=== PATIENT | female | born 1955 | race Caucasian/White ===

== ENCOUNTER 2020-03-17 16:36 | Emergency (ER) | payer OTHER, SELFPAY ==
--- NOTE | ~2020-03-17 | XR_ITS ---
EXAMINATION: XR lumbar spine 2-3V EXAM DATE: 03/17/2020 17:15 INDICATION: Back pain, after lifting table. Pain in both sides and hips. TECHNIQUE: Lumber spine frontal, lateral, lateral L5-S1 projections for interpretation. There is no prior study for comparison. 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 There is mild lumbar facet arthropathy. There is mild compression fracture of the L1 vertebral bod y, mild anterior wedging, potentially could be an acute finding. The vertebral body and disc heights are otherwise well maintained. The vertebral bodies are aligned in the AP dimension. Paraspinal soft tissue is unremarkable. Sacrum, sacroiliac joints, sacral arcuate lines are intact. IMPRESSION: Mild L1 compression fracture, could be acute. Reviewed, dictated and finalized at location A.
[2020-03-17 16:52] VITALS: BP 136/59; PULSE 128; RESP 20; O2SAT 92
--- NOTE | 2020-03-17 17:04 | PC.NURSE ---
Patient to x-ray.
--- NOTE | 2020-03-17 17:08 | ED.BACK ---
HPI - Back Pain/Injury General Chief Complaint: Back Pain/Injury <Rosa Lipscomb PA-C - Last Filed: 03/17/20 17:48> Stated Complaint: Back Pain <MARY Schwartz Last Filed: 03/17/20 17:48> Time Seen by Provider: 03/17/20 16:43 <MARY Schwartz Last Filed: 03/17/20 17:48> Source: patient <MARY Schwartz Last Filed: 03/17/20 17:48> Mode of arrival: ambulatory <MARY Schwartz Last Filed: 03/17/20 17:48> Limitations: no limitations <MARY Schwartz Last Filed: 03/17/20 17:48> History of Present Illness HPI Narrative: Patient with history of anxiety and some form of leukemia presents with chief complaint of low back pain that began last night at approximately 9 PM after lifting and moving a marble table by herself. Patient states that she does not have a history of low back pain and this is isolated event. Patient denies radiculopathy to her lower extremities, tingling or numbness. Patient denies saddle paresthesia or loss of bowel or bladder function. She reports pain has worsened since sleeping last night and worsens with range of motion such as twisting or flexing. <Rosa Lipscomb PA-C - Last Filed: 03/17/20 17:48> Related Data Home Medications: Home Medications Medication Instructions Recorded Confirmed allopurinol 1 PO DAILY 03/17/20 allopurinol 100 mg PO DAILY 03/17/20 03/17/20 alprazolam PRN PRN 03/17/20 <Rosa Lipscomb PA-C - Last Filed: 03/17/20 17:48> Allergies/Adverse Reactions: Allergies Allergy/AdvReac Type Severity Reaction Status Date / Time No Known Allergies Allergy Verified 03/17/20 17:03 <MARY Schwartz Last Filed: 03/17/20 17:48> Review of Systems Review of Systems: Narrative: CONSTITUTIONAL: Denies fever, chills, or sweats. EYES: Denies visual changes, redness, or discharge. ENT: Denies rhinorrhea, congestion, sore throat, or otalgia. CARDIOVASCULAR: Denies chest pain, palpitations, or edema. RESPIRATORY: Denies cough or dyspnea. GASTROINTESTINAL: Denies abdominal pain, nausea, vomiting, or diarrhea. GENITOURINARY: Denies dysuria or hematuria. SKIN: Denies rash or itching. MUSCULOSKELETAL:. Reports back pain, Denies joint pain, or myalgia. NEUROLOGIC: Denies headache, numbness, dizziness, or weakness. PSYCHIATRIC: Denies anxiety or depression. <Rosa Lipscomb PA-C - Last Filed: 03/17/20 17:48> Exam Narrative: Exam Narrative: GENERAL: Well-appearing, well-nourished, anxious. HEAD: Normocephalic, atraumatic. EYES: PERRLA and EOMI. ENT: Nares clear, no rhinorrhea or epistaxis. Mucous membranes moist. Oropharynx without tonsillar hypertrophy exudate or other lesions. Bilateral TMs pearly kaufman nonbulging CHEST: Clear to auscultation. No respiratory distress. No wheezes rales or rhonchi HEART: Regular rate and rhythm. BACK: No vertebral point tenderness. Pain to lumbar paraspinal muscles B/L Pain elicited with lumbar rotation and flexion. healed scar to lower right back. Gross sensation intact to lower extremities. EXTREMITIES: Normal range of motion. No edema. SKIN: Warm, dry, no rash. NEURO: No focal deficits. Alert and oriented x3. Gait is steady PSYCH: Anxious. <MARY Schwartz Last Filed: 03/17/20 17:48> Course Vital Signs Vital signs: Vital Signs Pulse Rate 128 H 03/17/20 16:52 Respiratory Rate 03/17/20 16:52 Blood Pressure 136/59 L 03/17/20 16:52 Pulse Oximetry 92 03/17/20 16:52 Temperature 36.9 C 03/17/20 17:16 Pulse Rate 128 H 03/17/20 16:52 Respiratory Rate 03/17/20 16:52 Blood Pressure 136/59 L 03/17/20 16:52 Pulse Oximetry 92 03/17/20 16:52 <MARY Schwartz Last Filed: 09/10/20 17:48> Vital Signs Pulse Rate 128 H 03/17/20 16:52 Respiratory Rate 20 03/17/20 16:52 Blood Pressure 136/59 L 03/17/20 16:52 Pulse Oximetry 92 03/17/20 16:52 Temperature 36.9 C 03/17/20 17:16 Pulse Rate
[2020-03-17 17:16] VITALS: TEMP 36.9
[2020-03-17 18:05] VITALS: BP 127/59; PULSE 110; RESP 16; O2SAT 100
== END 2020-03-17 18:05 | disposition home or self-care (01) ==
PROVIDERS: Emergency Provider Emergency Medicine
DX: S39.012A Strain of muscle, fascia and tendon of lower back, initial encounter (principal); F41.9 Anxiety disorder, unspecified; Z85.6 Personal history of leukemia; R93.7 Abnormal findings on diagnostic imaging of other parts of musculoskeletal system; X50.0XXA Overexertion from strenuous movement or load, initial encounter
CPT/HCPCS: 72100; 99283; A9270

== ENCOUNTER 2021-04-25 07:49 | Outpatient (CLI) | payer OTHER, SELFPAY ==
--- NOTE | ~2021-04-25 | MM_ITS ---
EXAMINATION: MM screening sayda BI w samantha HISTORY: Screening mammogram TECHNIQUE: Craniocaudal and mediolateral oblique 3-D tomosynthesis images were obtained and synthetic 2-D images were generated. CAD analysis was submitted and interpreted. COMPARISON: No prior mammogram is available for comparison at this institution. BREAST PARENCHYMAL COMPOSITION: The breasts are heterogeneously dense, which may obscure small masses . FINDINGS: There is no evidence of suspicious mass, calcification, or architectural distortion to sugg est malignancy in either breast. There has been no suspicious interval change. IMPRESSION: 1. No mammographic evidence of malignancy. 2. Recommend routine screening mammography in one year. BI-RADS Category 1: Negative Reviewed, dictated and finalized at location A.
--- NOTE | ~2021-04-25 | DEXA_ITS ---
Bone Density Report Name: Ashley Boudreaux Age: 65 Sex: Female Ethnicity: White Date of : 1955 Indication: postmenopausal; height loss; prior fracture; Referring Provider: BROWN MOSLEY Study: Bone densitometry was performed. Exam Date: April 25, 2021 Accession number: [id number] Bone Density: Region BMD T-score Z-score Classification AP Spine (L1-L4) 0.691 -3.2 -1.4 Osteoporosis Femoral Neck (Left) 0.540 -2.8 -1.2 Osteoporosis Total Hip (Left) 0.550 -3.2 -2.0 Osteoporosis Total Hip Bilateral Avg 0.536 -3.4 -2.1 Osteoporosis Femoral Neck (Right) 0.501 -3.1 -1.6 Osteoporosis Total Hip (Right) 0.521 -3.5 -2.2 Osteoporosis World Health Organization criteria for BMD impression classify patients as: Normal (T-score at or above -1.0), Osteopenia (T-score between -1.0 and -2.5), or Osteoporosis (T-score at or below -2.5). 10-year Fracture Risk: FRAX not reported because: Some T-score for Spine Total or Hip Total or Femoral Neck at or below -2.5 Clinical Information Provided by Patient: Has had a low trauma fracture Smokes Has used the following medications: Vitamin D, Calcium Patient maximum height was 68 Menopause Age: 45 No regular weight bearing exercise Onset of menses at age 13 Number of children 4 Impression: The patient has established osteoporosis, based on the Right Total Hip T-score and the existence of a prior fracture. The patient has risk factors, including: smoking, previous fracture. Discussion: HIGH RISK OF FRACTURE. BONE DENSITY IS UNDESIRABLY LOW AT ONE OR MORE SKELETAL SITES, CONSISTENT WITH POSTMENOPAUSAL OSTEOPOROSIS. This patient's lowest T-score, in a patient who has previously fractured, meets the World Health Organization's (WHO) criteria for severe osteoporosis. In untreated patients, the risk of osteoporotic fracture increases approximately two-fold for each 1.0 SD decrease in T-score. Low bone density is not the only risk factor for fracture; also consider factors such as patient's age, frailty or poor health, risk of falling, risk of injury, previous osteoporotic fracture, family history of osteoporosis, cigarette smoking, low body weight, etc. Not everyone with low bone mineral density has osteoporosis; osteomalacia and other metabolic bone disorders should also be considered. Patients who have osteoporosis should be evaluated for specific diseases and conditions (secondary causes) that may cause or contribute to bone loss. The [employer] Association of Clinical Endocrinologists (AACE) and National Osteoporosis Foundation (NOF) recommend pharmacologic intervention for all postmenopausal women whose T-score is in this range. The patient should follow a healthful lifestyle (good nutrition with adequate calcium and vitamin D, and appropriate weight-bearing exercise). Follow-Up: Consider a repe
== END 2021-04-25 07:50 | disposition home or self-care (01) ==
LOC: ANHIMG 07:58
DX: Z12.31 Encounter for screening mammogram for malignant neoplasm of breast (principal); Z78.0 Asymptomatic menopausal state; M81.0 Age-related osteoporosis without current pathological fracture
CPT/HCPCS: 77063; 77067; 77080

== ENCOUNTER 2022-07-10 06:53 | Outpatient (CLI) | payer MEDICARE, SELFPAY ==
[2022-07-10 08:09] LABS: LDL Cholesterol Direct 103 mg/dL
[2022-07-10 08:46] LABS: Alanine Aminotransferase 35 U/L (6-35); Albumin Level 4.1 g/dL (3.5-5.1); Alkaline Phosphatase 71 U/L (38-126); Anion Gap 7 mmol/L (8-16); Aspartate Amino Transferase 43 U/L (14-36); Bilirubin,Total 0.6 mg/dL (0.2-1.3); Blood Urea Nitrogen 11 mg/dL (7-17); Calcium 8.7 mg/dL (8.4-10.2); Carbon Dioxide 29 mmol/L (22-30); Chloride 102 mmol/L (98-107); Cholesterol 231 mg/dL (0-200); Estimated Glomerular Filt Rate > 60; Glucose 100 mg/dL (65-110); HDL Direct 85 mg/dL; Potassium 4.4 mmol/L (3.4-5.0); Sodium 138 mmol/L (137-145); Triglycerides 86 mg/dL (<150)
== END 2022-07-10 06:54 | disposition home or self-care (01) ==
DX: E78.5 Hyperlipidemia, unspecified (principal); R74.01 Elevation of levels of liver transaminase levels; R53.83 Other fatigue; E55.9 Vitamin D deficiency, unspecified; Z87.39 Personal history of other diseases of the musculoskeletal system and connective tissue
CPT/HCPCS: 36415; 80053; 80061; 82306; 84550

== ENCOUNTER 2022-12-29 08:10 | Outpatient (CLI) | payer MEDICARE, SELFPAY ==
--- NOTE | ~2022-12-29 | MM_ITS ---
EXAMINATION: MM screening sayda BI w samantha HISTORY: Screening mammogram TECHNIQUE: Craniocaudal and mediolateral oblique 3-D tomosynthesis images were obtained and synthetic 2-D images were generated. Bilateral rotated lateral CC views. CAD analysis was submitted and interp reted. COMPARISON: No prior mammogram is available for comparison at this institution. BREAST PARENCHYMAL COMPOSITION: The breasts are heterogeneously dense, which may obscure small masses . FINDINGS: There is no evidence of suspicious mass, calcification, or architectural distortion to sugg est malignancy in either breast. There has been no suspicious interval change. IMPRESSION: 1. No mammographic evidence of malignancy. 2. Recommend routine screening mammography in one year. BI-RADS Category 1: Negative Reviewed, dictated and finalized at location A.
== END 2022-12-29 08:11 | disposition home or self-care (01) ==
LOC: ANHIMG 08:14
DX: Z12.31 Encounter for screening mammogram for malignant neoplasm of breast (principal)
CPT/HCPCS: 77063; 77067

== ENCOUNTER 2024-01-03 07:45 | Outpatient (CLI) | payer MEDICARE, SELFPAY ==
--- NOTE | ~2024-01-03 | MM_ITS ---
EXAMINATION: MM screening sayda BI w samantha HISTORY: Screening mammogram TECHNIQUE: Craniocaudal and mediolateral oblique 3-D tomosynthesis images were obtained and synthetic 2-D images were generated. CAD analysis was submitted and interpreted. COMPARISON: 12/29/2022, 04/25/2021 BREAST PARENCHYMAL COMPOSITION:Dense: The breasts are extremely dense, which lowers the sensitivity o f mammography. FINDINGS: No suspicious mass, calcification, or architectural distortion are identified in either abiodun ast to suggest malignancy. There has been no suspicious interval change. IMPRESSION: No mammographic evidence of malignancy. Recommend routine screening mammography in one year. BI-RADS Category 1: Negative Reviewed, dictated and finalized at location M.
== END 2024-01-03 07:46 | disposition home or self-care (01) ==
LOC: ANHIMG 07:45
DX: Z12.31 Encounter for screening mammogram for malignant neoplasm of breast (principal)
CPT/HCPCS: 77063; 77067

== ENCOUNTER 2025-01-14 15:15 | Emergency (ER) | payer MEDICARE, SELFPAY ==
--- NOTE | ~2025-01-14 | XR_ITS ---
XR chest 1V Ordering provider: Megan Kaminski History: 69 years Female with . extremity numbness . Comparison: None. FINDINGS: MEDIASTINUM: The cardiac silhouette is not enlarged. LUNGS: No infiltrates, effusions or pneumothorax. Underlying emphysematous changes. OTHER: No free air under the diaphragm. Degenerative changes of the spine. IMPRESSION: No acute cardiopulmonary pathology. Reviewed, dictated and finalized at location A.
[2025-01-14 15:16] VITALS: BP 124/51; PULSE 105; RESP 16; TEMP 36.4; O2SAT 97
--- OUTSIDE RECORDS SUMMARY | 2025-01-14 15:18 | XMS_ITS | Clinical Summary ---
Author Organization [facility] Address [address] [place] [address] Care Team Providers Care Billboard Erector Helper Name Role Phone Chery Katelyn Thakur APRN-PRESCHOOL DIRECTOR Primary Care Provider [phone] Source Comments [facility],non-owned Affiliates and Associated Physician Practices is amultiple site organization consisting of ambulatory clinics and hospital sitesin [place], [place], [place] and [place]. This disclosure is being madepursuant to the Care Everywhere program and may not contain all information available regarding this patient. 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 Gender Identity Not on file Sexual Orientation Not on file Last Filed Vital Signs Vital Sign Reading Time Taken Comments Blood Pressure 117/70 02/06/2016 8:14 AM CDT Pulse 80 02/06/2016 8:14 AM CDT Temperature 37 C (98.6 F) 02/06/2016 8:14 AM CDT Respiratory Rate 18 02/06/2016 8:14 AM CDT Oxygen Saturation 96% 02/06/2016 8:14 AM CDT Inhaled Oxygen Concentration - - Weight 47.1 kg (103 lb 14.4 oz) 02/06/2016 8:14 AM CDT Height 175.3 cm (5' 9) 01/10/2016 3:20 PM CDT Body Mass Index 15.34 01/10/2016 3:20 PM CDT Plan of Treatment Health Maintenance Due Date Last Done Comments BONE DENSITY TESTING 1955 COLOGUARD (AGES 45-75) - COL ON CA SCREENING 1955 COLON MONITORING 1955 COLONOSCOPY - COLON CA SCREENING 1955 CT COLONOGRAPHY - COLON CA SCREENING 1955 Colorectal Cancer Screening 1955 FIT - COLON CA SCREENING 1955 FLEX SIG - COLON CA SCREENING 1955 LIPID TESTING 1955 MAMMOGRAM 1955 HEPATITIS C SCREENING 08/22/1973 DTAP/TDAP/TD VACCINES (1 - Tdap) 1974 PNEUMOCOCCAL VACCINE 50+ (1 of 1 - PCV) 2005 ZOSTER VACCINE (1 of 2) 2005 COVID-19 VACCINE (3 - 2023-2 5 season) 2024 10/28/2020, 10/06/2020 DEPRESSION SCREENING 07/08/2024 INFLUENZA VACCINE (#1) 2025 Respiratory Syncytial Virus (RSV) Vaccine Pt: or over 60 yrs (1 - 1-dose 75+ series) 2030 HEPATITIS B VACCINE Aged Out No longe r eligible based on patient's age to complete this topic HIB VACCINE Aged Out No longer eligi ble based on patient's age to complete this topic HPV VACCINE Aged Out No longer eligi ble based on patient's age to complete this topic MENINGOCOCCAL (Group B) VACCINE SHARED DECISION-MAKING Aged Out No longer eligible based on patient's age to complete this topic MENINGOCOCCAL GROUPS A/C/Y/W VACCINE Aged Out No longer eligible b ased on patient's age to complete this topic Insurance [employer]ET[employer] Care Teams Billboard Erector Helper Relationship Specialty Start Date End Date Katelyn Gottlieb, WORT EXTRACTOR-PRESCHOOL DIRECTOR PCP - General 07/09/18
--- OUTSIDE RECORDS SUMMARY | 2025-01-14 15:18 | XMS_ITS | Clinical Summary ---
Author Organization [facility] [address] Address [address] [place] [address] Care Team Providers Care Donor Specialist Name Role Phone Ritesh Zapien MD Primary Care Provi jeff Allergies No known active allergies Medications aspirin 81 mg enteric coated tablet 1 tablet (81 mg total) daily Active albuterol HFA (PROVENTIL HFA,VENTOLIN HFA,PROAIR HFA) 90 mcg/actuation inhaler Inhale 2 puffs every 4 (four) hours as needed for wheezing or shortness of breath 6 Active denosumab (PROLIA) 60 mg/mL syringeIndicatio ns:Osteoporosis, unspecified osteoporosis type, unspecified pathological fracture presence Inject 1 mL (60 mg total) under the skin once for 1 dose 1 mL 3 9 Active Additional Information Patient not taking.Reported on 07/09/2024 glycopyrrolate-f ormoteroL (Bevespi Aerosphere) 9-4.8 mcg inhalerIndicatio ns:Chronic obstructive pulmonary disease, unspecified COPD type (HCC) Inhale 2 puffs 2 (two) times a day 10.7 g 11 3 Active Additional Information Patient not taking.Reported on 08/06/2024 allopurinoL (ZYLOPRIM) 100 mg tabletIndication s:Acute gout, unspecified cause, unspecified site Take 1 tablet (100 mg total) by mouth daily 7 tablet 3 Active buPROPion XL (WELLBUTRIN XL) 150 mg 24 hr tablet TAKE 1 TABLET BY MOUTH ONCE DAILY IN THE MORNING 90 tablet 3 4 Active Additional Information Patient not taking.Reported on 08/06/2024 busPIRone (BUSPAR) 5 mg tabletIndication s:Generalized Anxiety Disorder Take 1 tablet (5 mg total) by mouth 2 (two) times a day 5 Active clonazePAM (KlonoPIN) 1 mg tabletIndication s:Anxiety TAKE 1 TO 2 TABLETS BY MOUTH ONCE DAILY NEEDED FOR ANXIETY 60 tablet 5 5 Active Active Problems Problem Noted Date Diagnosed Date History of gout 06/20/2022 Mixed hyperlipidemia 06/20/2022 ETOH abuse 12/30/2015 Nervousness 12/30/2015 Polycythemia vera 12/30/2015 Immunizations Immunization Administration Dates Next Due Influenza, Unspecified 08/06/2024(Deferr ed: Patient Refused),08/06/2024(Deferred: Patient Refused),04/07/2024,10/16/2023(Deferred: Patient Refused),09/08/2023(Deferred: Patient Refused),09/08/2023(Deferred: Patient Refused),09/08/2023(Deferred: Patient Refused),09/07/2022(Deferred: Patient Refused),06/07/2022 Pneumococcal Conjugate, Unspecified 07/09/2024(D eferred: Patient Refused) Surgical History Surgery Date Site/Laterality Comments WRIST SURGERY Right Medical History Medical History Date Comments COPD (chronic obstructive pulmonary disease) (HC C) Anxiety Polycythemia vera (HCC) H/O ETOH abuse Gout Osteoporosis Family History Medical History Relation Name Comments Cancer Father Throat Cancer Mother Brain Relation Name Status Comments Father Mother Social History Tobacco Use Types Packs/Day Years Used Date Smoking Tobacco: Former Cigarettes 0.5 15 0 12/22/2003 - 12/21/2018 Smokeless Tobacco: Never Tobacco Cessation:Counseling Given: Not Answered Alcohol Use Standard Drinks/Week Comments Yes 0 (1 standard drink = 0.6 oz pur e alcohol) PHQ-2 Answer Date Recorded PHQ-2 Total Score 6 10/03/2023 PHQ-9 Answer Date Recorded PHQ-9 Total Score 18 10/03/2023 Comments Unknown Sex and Gender Information Value Date Recorded Sex Assigned at Not on file Legal Sex Female 5:42 PM RN INTENSIVE CARE UNIT Gender Identity Not on file Sexual Orientation Not on file Obstetrics History Last Filed Vital Signs Vital Sign Reading Time Taken Comments Blood Pressure 110/75 08/06/2024 10:35 AM RN [facility] Pulse 93 08/06/2024 10:35 AM RN [facility] Temperature 36.7 C (98.1 F) 09/27/2022 9:44 AM CDT Respiratory Rate 18 07/09/2024 11:05 AM RN [facility]ARE UNIT Oxygen Saturation 96% 07/09/2024 11:05 AM RN [facility] Inhaled Oxygen Concentration - - Weight 41.3 kg (91 lb) 08/06/2024 10:35 AM RN [facility] r eported by Height 175.3 cm (5' 9) 08/06/2024 10:35 AM RN [facility] Body Mass Index 13.44 08/06/2024 10:35 AM RN [facility]ARE UNIT Plan of Treatment Health Maintenance Due Date Last Done Comments Hepatitis C Screening 1955 DTaP/Tdap/Td Vaccine (1 - Tdap) 1966 Hepatitis B Screening 1973 Zoster Vaccine (1 of 2) 2005 Osteoporosis Screening-Bone Density Scan 04/25/2023 04/25/2021, 01/22/2019 Well Visit 65+ 09/28/2023 09/27/2022, 02/17/2021 Depression Screening 10/02/2024 10/03/2023, 10/03/2023, 09/27/2022, Additional history exists Fall Risk Assessment 10/02/2024 10/03/2023, 09/27/2022, 02/17/2021 Breast Cancer Screening-Mammogram 01/02/2025 01/03/2024, 12/29/2022 Covid-19 Vaccine ( season) 2025 10/28/2020, 10/06/2020 Postponed from 03/08/2024 (Patient declined, but will receive in the future) Colon Cancer Screening-DNA Stool 03/09/2027 03/09/2024, 02/27/2021 Colon Cancer Screening-FIT Discontinued 03/09/2024, Influenza Vaccine Completed 04/07/2024, 06/07/2022 Pneumococcal vaccine 65+ Discontinued Procedures Procedure Name Priority Date/Time Associated Diagnosis Comments STOOL DNA COLOGUARD Routine 03/09/2024 5:00 AM CDT Screening for colon cancer MAMMOGRAPHY Routine 01/03/2024 DEXA SCAN Routine 04/25/2021 from Last 3 Months or Most Recently Relevant to Health Maintenance Results * Stool DNA - Cologuard (03/09/2024 5:00 AM CDT) Stool DNA - Cologuard Negative Negative [facility] (CLIA #:[id number]) Comment: NEGATIVE TEST RESULT. A negative Cologuard result indicates a low likelihood that a colorectal cancer (CRC) or advanced adenoma (adenomatous polyps with more advanced pre-malignant features) is present. The chance that a person with a negative Cologuard test has a colorectal cancer is less than 1 in 1500 (negative predictive value >99.9%) or has an advanced adenoma is less than 5.3% (negative predictive value 94.7%). These data are based on a prospective cross-sectional study of 10,000 individuals at average risk for colorectal cancer who were screened with both Cologuard and colonoscopy. (Nico Simms. et al, N Engl J Med 2014;370(14):7906-3457) The normal value (reference range) for this assay is negative. COLOGUARD RE-SCREENING RECOMMENDATION: Periodic colorectal cancer screening is an important part of preventive healthcare for asymptomatic individuals at average risk for colorectal cancer. Following a negative Cologuard result, the [place] Cancer Society and U.S. Multi-Society Task Force screening guidelines recommend a Cologuard re-screening interval of 3 years. References: [place] Cancer Society Guideline for Colorectal Cancer Screening: https://www.cancer.org/cancer/kobks-jkyfcw-ciwawa/zefbljxdo-jtabtbokx-squhxto/ac s-rec ommendations.html.; [place] DYSON, Crystal SHAVER, Rosey HAMLIN, Colorectal Cancer Screening: Recommendations for Physicians and Patients from the U.S. Multi-Society Task Force on Colorectal Cancer Screening , Am J Gastroenterology 2017; 112:6970-6000. TEST DESCRIPTION: Composite algorithmic analysis of stool DNA-biomarkers with hemoglobin immunoassay. Quantitative values of individual biomarkers are not reportable and are not associated with individual biomarker result reference ranges. Cologuard is intended for colorectal cancer screening of adults of either sex, 45 years or older, who are at average-risk for colorectal cancer (CRC). Cologuard has been approved for use by the U.S. FDA. The performance of Cologuard was established in a cross sectional study of average-risk adults aged 50-84. Cologuard performance in patients ages 45 to 49 years was estimated by sub-group analysis of near-age groups. Colonoscopies performed for a positive result may find as the most clinically significant lesion: colorectal cancer [4.0%], advanced adenoma (including sessile serrated polyps greater than or equal to 1cm diameter) [20%] or non- advanced adenoma [31%]; or no colorectal neoplasia [45%]. These estimates are derived from a prospective cross-sectional screening study of 10,000 individuals at average risk for colorectal cancer who were screened with both Cologuard and colonoscopy. (Nico Pollock al, N Engl J Med 2014;370(14):5796-8580.) Cologuard may produce a false negative or false positive result (no colorectal cancer or precancerous polyp present at colonoscopy follow up). A negative Cologuard test result does not guarantee the absence of CRC or advanced adenoma (pre-cancer). The current Cologuard screening interval is every 3 years. ([place] Cancer Society and U.S. Multi-Society Task Force). Cologuard performance data in a 10,000 patient pivotal study using colonoscopy as the reference method can be accessed at the following location: www.[employer].Telller/results. Additional description of the Cologuard test process, warnings and precautions can be found at www.[employer].comrd.com. Stool 03/09/2024 5:00 AM CDT 03/12/2024 1:41 PM CDT Katelyn Gottlieb NP LAB BODY FLUIDS AND STOOLS ORDERABLES Final Result [facility] (CLIA #:[id number]) [place] [address] * MAMMOGRAPHY (01/03/2024) us Historical Provider HEALTH MAINTENANCE Final Result * DEXA SCAN (04/25/2021) us Historical Provider HEALTH MAINTENANCE Final Result from Last 3 Months or Most Recently Relevant to Health Maintenance Insurance [facility] MEDICARE [facility] Care Teams Donor Specialist Relationship Specialty Start Date End Date Ritesh Zapien MD [address] [address] PCP - General Family Medicine 04/24/21
--- OUTSIDE RECORDS SUMMARY | 2025-01-14 15:18 | XMS_ITS | Encounter Summary ---
Author Organization [facility] Facility Care Team Providers Care Emergency Worker Name Role Phone Ritesh Zapien MD Primary Care Provi jeff Katelyn Gottlieb NP Primary Care Provider [phone]- [phone] Katelyn Gottlieb NP Primary Care Provider Ritesh Zapien MD Primary Care Provi jeff Encounter Details Date Type Department Care Team (Latest Contact Info) Description 10/20/2015 Orders Only [facility] CLINCONV ProviderGrace MD [address] [place] [id number] Social History Tobacco Use Types Packs/Day Years Used Date Smoking Tobacco: Never Assessed Comments Unknown Sex and Gender Information Value Date Recorded Sex Assigned at Not on file Legal Sex Female 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 Historical Provider Final Res ult documented in this encounter Visit Diagnoses Not on filedocumented in this encounter Care Teams Emergency Worker Relationship Specialty Start Date End Date Ritesh Zapien MD [address] [place] [address] PCP - General Family Medicine 12/18/18 01/05/19 Katelyn Gottlieb NP [address] [facility] [address] [place] [address] PCP - General 01/22/19 04/23/21 Katelyn Gottlieb NP [address] [place] [id number] PCP - General 01/06/19 01/21/19 Ritesh Zapien MD [address] [place], [place] [phone] PCP - General Family Medicine 04/24/21 documented as of this encounter
--- OUTSIDE RECORDS SUMMARY | 2025-01-14 15:18 | XMS_ITS | Referral Summary ---
Author Organization [facility] [address] [place] [address] Care Team Providers Care Drawing Checker Name Role Phone Ritesh Zapien MD Primary [...] Pneumococcal Conjugate, Unspecified 07/09/2024(D eferred: Patient Refused) Social History Tobacco Use Types Packs/Day Years [...] on file Legal Sex Female 5:42 PM RELIABILITY SPECIALIST Gender Identity Not on file Sexual Orientation Not on file Last Filed Vital Signs Vital Sign Reading Time Taken Comments Blood Pressure 110/75 08/06/2024 10:35 AM RELIABILITY SPECIALIST Pulse 93 08/06/2024 10:35 AM RELIABILITY SPECIALIST Temperature 36.7 C (98.1 F) 09/27/2022 9:44 AM CDT Respiratory Rate 18 07/09/2024 11:05 AM RELIABILITY SPECIALIST Oxygen Saturation 96% 07/09/2024 11:05 AM RELIABILITY SPECIALIST Inhaled Oxygen Concentration - - Weight 41.3 kg (91 lb) 08/06/2024 10:35 AM RELIABILITY SPECIALIST r eported by Height 175.3 cm (5' 9) 08/06/2024 10:35 AM RELIABILITY SPECIALIST Body Mass Index 13.44 08/06/2024 10:35 AM RELIABILITY SPECIALIST Plan of Treatment Not on file Procedures Procedure Name Priority Date/Time Associated Diagnosis Comments STOOL DNA COLOGUARD Routine 03/09/2024 5:00 AM CDT Screening for colon cancer MAMMOGRAPHY Routine 01/03/2024 DEXA SCAN Routine 04/25/2021 from Last 3 Months or Most Recently Relevant to Health Maintenance Results * Stool DNA - Cologuard (03/09/2024 5:00 AM CDT) Stool DNA - Cologuard Negative Negative [facility] (CLIA #:[id number]) Comment: NEGATIVE TEST RESULT. A negative Cologuard [...] (Nico Pollock al, N Engl J Med 2014;370(14):3160-4769) The normal value (reference range) for this assay is negative. COLOGUARD RE-SCREENING RECOMMENDATION: Periodic colorectal cancer screening is an important part of preventive healthcare for asymptomatic individuals at average risk for colorectal cancer. Following a negative Cologuard result, the [place] Cancer Society and U.S. Multi-Society Task Force screening guidelines recommend a Cologuard re-screening interval of 3 years. References: [place] [employer] Guideline for Colorectal Cancer Screening: https://www.cancer.org/cancer/ncqez-dzmfkm-etjahe/bsvowtbbj-xsgmlveym-ukxzjlg/ac s-rec ommendations.html.; [place] DK, Crystal SHAVER, Rosey HAMLIN, Colorectal Cancer Screening: Recommendations for Physicians and Patients from the U.S. Multi-Society Task Force on Colorectal Cancer Screening , Am J Gastroenterology 2017; 112:8337-9259. TEST DESCRIPTION: Composite algorithmic analysis of stool [...] (Nico Pollock al, N Engl J Med 2014;370(14):6279-8830.) Cologuard may produce a false negative or false positive result (no colorectal cancer or precancerous polyp present at colonoscopy follow up). A negative Cologuard test result does not guarantee the absence of CRC or advanced adenoma (pre-cancer). The current Cologuard screening interval is every 3 years. ([place] [employer] Society and U.S. Multi-Society Task Force). Cologuard performance data in a 10,000 patient pivotal study using colonoscopy as the reference method can be accessed at the following location: www.exactlabs.com/results. Additional description of the Cologuard test process, warnings and precautions can be found at www.cologuard.com. Stool 03/09/2024 5:00 AM CDT 03/12/2024 1:41 PM CDT us Katelyn Gottlieb CHIEF CLOTH FINISHING RANGE OPERATOR LAB BODY FLUIDS AND STOOLS ORDERABLES Final Result [facility] (CLIA #:[id number]) [place] [address] * MAMMOGRAPHY (01/03/2024) Historical Provider HEALTH MAINTENANCE Final Result * DEXA SCAN (04/25/2021) Historical Provider HEALTH MAINTENANCE Final Result from Last 3 Months or Most Recently Relevant to Health Maintenance Insurance [id number] MEDICARE [facility]ARE [facility] Care Teams Drawing Checker Relationship Specialty Start Date End Date Ritesh Zapien MD [address] [address] PCP - General Family Medicine 04/24/21
--- OUTSIDE RECORDS SUMMARY | 2025-01-14 15:18 | XMS_ITS | Encounter Summary ---
Author Organization [facility] Facility Care Team Providers Care Licensed Funeral Director And Embalmer Name Role Phone Ritesh Zapien MD Primary Care Provi jeff Katelyn Gottlieb NP Primary Care Provider [phone]- [phone] Katelyn Gottlieb NP Primary Care Provider Ritesh Zapien MD Primary Care Provi jeff Encounter Details Date Type Department Care Team (Latest Contact Info) Description 01/25/2016 Orders Only [facility] CLINCONV ProviderGrace MD [address] [place] [address] Social History Tobacco Use Types Packs/Day Years Used Date Smoking Tobacco: Never Assessed Comments Unknown Sex and Gender Information Value Date Recorded Sex Assigned at Not on file Legal Sex Female 5:42 PM SVP OPERATIONS Gender Identity Not on file Sexual Orientation Not on file documented as of this encounter Plan of Treatment Not on file documented as of this encounter Procedures Procedure Name Priority Date/Time Associated Diagnosis Comments SCAN - LABS 01/26/2016 12:00 AM CDT documented in this encounter Results * SCAN - LABS (01/26/2016 12:00 AM CDT) Narrative 01/26/2016 12:00 AM CDT Ordered by an unspecified provider. Historical Provider Final Res ult documented in this encounter Visit Diagnoses Not on filedocumented in this encounter Care Teams Licensed Funeral Director And Embalmer Relationship Specialty Start Date End Date Ritesh Zapien MD [address] [place] [address] PCP - General Family Medicine 12/18/18 01/05/19 Katelyn Gottlieb NP [address] [facility] [address] [place] [address] PCP - General 01/22/19 04/23/21 Katelyn Gottlieb NP [address] [place] [phone] PCP - General 01/06/19 01/21/19 Ritesh Zapien MD [address] [place], [place] [phone] PCP - General Family Medicine 04/24/21 documented as of this encounter
[2025-01-14 15:22] VITALS: BP 124/51; PULSE 105; RESP 20; TEMP 36.4; O2SAT 97
--- NOTE | 2025-01-14 16:29 | ECG_ITS ---
Test Date: 2025-01-14 20:36:28 Measurements Intervals [place] Rate: 70 P: 77 MI: 155 QRS: 67 QRSD: 86 T: 69 QT: 405 QTc: 437 Interpretive Statements SINUS RHYTHM WITH OCCASIONAL VENTRICULAR PREMATURE COMPLEXES POSSIBLE LEFT ATRIAL ENLARGEMENT [-0.1mV P-WAVE IN V1/V2] SEPTAL MYOCARDIAL INFARCTION , OF INDETERMINATE AGE [40+ ms Q WAVE IN V1/V2] No previous ECG available for comparison Electronically Signed On 01-15-2025 07:08:47 CDT by Willow Jasso M.D.
--- NOTE | 2025-01-14 16:36 | ED_ITS ---
HPI - General Adult General Chief complaint: Unspecified <Megan Kaminski PA-C - Last Filed: 01/14/25 16:38> Stated complaint: low bp, numbness in the L arm/leg <Megan Kaminski PA-C - Last Filed: 01/14/25 16:38> Time Seen by Provider: 01/14/25 20:37 <Megan Kaminski PA-C - Last Filed: 01/14/25 16:38> Focused HPI: 69 y/o F with a PMHx anxiety, polycythemia vera, COPD, osteoporosis presents to the emergency department for numbness to her extremities since 9:00 a.m.. Patient states at 9:00 a.m. she developed sudden onset numbness of her bilateral lower extremities and bilateral arms which seemed to be worse in her left arm and left leg. She states the numbness in her right arm and right leg have largely resolved persist in the left side. She denies any chest pain. She reports shortness of breath that she attributes to her COPD. She reports headaches daily for the past week which is new. She states the headaches are bitemporal and radiate to her occiput. She denies any head injury or trauma, vision changes, fever, cough or congestion. She notes prior to the onset of her extremity numbness she was feeling anxious but she is uncertain why. Denies history of CVA/TIA, heart disease. She states she quit smoking 1 month ago. GENERAL: Well-appearing, well-nourished, and in no acute distress. HEAD: Normocephalic, atraumatic. CHEST: Clear to auscultation. ?No respiratory distress. HEART: Regular rate and rhythm.? NEURO: ?Alert and oriented x4. Cranial nerves 2-12 intact. Strength 5/5 in BUE and BLE. Sensation reportedly decrease in left arm and left leg. No ataxia Patient screened in triage and initial orders placed.? ?Additional care and disposition to be based upon?diagnostic testing and treatment. <Megan Kaminski PA-C - Last Filed: 01/14/25 16:38> Focused HPI: 69 y/o F with a PMHx anxiety, polycythemia vera, COPD, osteoporosis presents to the emergency department for numbness to her extremities since 9:00 a.m. patient describes the numbness to various parts of her bilateral upper and lower extremity not following any specific neurological distribution. She admits that she is recovering alcoholic and has been clean for a while but used to drink heavily. She denies any chest pain. She reports shortness of breath that she attributes to her COPD. She reports headaches daily for the past week which is new. She states the headaches are bitemporal and radiate to her occiput. She denies any head injury or trauma, vision changes, fever, cough or congestion. She notes prior to the onset of her extremity numbness she was feeling anxious but she is uncertain why. Denies history of CVA/TIA, heart disease. She states she quit smoking 1 month ago. also states that what actually prompted them to come to the emergency department was that the patient's blood pressure was noted to be low. At one point he got a blood pressure in the 70/80 systolic. In triage, patient's blood pressure was noted to be normal 124/51. GENERAL: Well-appearing, well-nourished, and in no acute distress. HEAD: Normocephalic, atraumatic. CHEST: Clear to auscultation. ?No respiratory distress. HEART: Regular rate and rhythm.? NEURO: ?Alert and oriented x4. Cranial nerves 2-12 intact. Strength 5/5 in BUE and BLE. Sensation reportedly decrease in left arm and left leg. No ataxia Patient screened in triage and initial orders placed.? ?Additional care and disposition to be based upon?diagnostic testing and treatment. <Flip Garrett MD - Last Filed: 01/14/25 21:44> Related Data Home medications: Home Medications ?Medication ?Instructions ?Recorded ?Confirmed ?Last Taken ?Type allopurinol 1 PO DAILY 03/17/20 Unknown History allopurinol 100 mg tablet 100 mg PO DAILY 03/17/20 03/17/20 Unknown History alprazolam PRN PRN Anxiety 03/17/20 Unknown History <Megan Kaminski PA-C - Last Filed: 01/14/25 16:38> Allergies/adverse reactions: Allergies Allergy/AdvReac Type Severity Reaction Status Date / Time No Known Allergies Allergy Verified 01/14/25 15:18 <Megan Kaminski PA-C - Last Filed: 01/14/25 16:38> Review of Systems 2 Review of Systems: All systems are reviewed and are negative unless stated otherwise in the HPI. <Flip Garrett MD - Last Filed: 01/14/25 21:44> Exam 2 Narrative: General: Alert, awake, afebrile, in no acute distress. HEENT: PERRL, no rhinorrhea, no post nasal drip, oropharynx clear. Neck: Trachea midline, no JVD, no lymphadenopathy. Cardiovascular: Regular rate and rhythm, no murmurs, rubs or gallops, no peripheral edema. Respiratory: Clear to auscultation bilaterally, no tachypnea, no wheezing, no rhonchi, no rubs, no respiratory distress. Abdomen: Soft, nontender, nondistended, no rebound, no guarding, no peritoneal signs. Musculoskeletal: No joint swelling or deformity, normal muscle tone. Skin: No rashes or petechia, no signs of infection. Psychiatric: Alert and oriented, normal behavior and judgment for situation. Neurological: Alert and oriented to person, place, and time. Follows all commands. No focal deficits, 5/5 motor strength in the bilateral upper and lower extremity, sensation intact in the bilateral upper and lower extremity cranial nerves 2-12 grossly intact, speech is clear and fluent, gait intact and normal. <Flip Garrett MD - Last Filed: 01/14/25 21:44> Course Vital Signs Vital signs: Vital Signs Temperature 97.6 F 01/14/25 15:16 Pulse Rate 105 H 01/14/25 15:16 Respiratory Rate 16 01/14/25 15:16 Blood Pressure 124/51 L 01/14/25 15:16 Pulse Oximetry 97 01/14/25 15:16 Temperature 97.8 F 01/14/25 19:02 Pulse Rate 84 01/14/25 19:02 Respiratory Rate 16 01/14/25 19:02 Blood Pressure 107/54 L 01/14/25 19:02 Pulse Oximetry 98 01/14/25 19:02 <Megan Kaminski PA-C - Last Filed: 01/14/25 16:38> Vital Signs Temperature 97.6 F 01/14/25 15:16 Pulse Rate 105 H 01/14/25 15:16 Respiratory Rate 16 01/14/25 15:16 Blood Pressure 124/51 L 01/14/25 15:16 Pulse Oximetry 97 01/14/25 15:16 Temperature 97.8 F 01/14/25 19:02 Pulse Rate 84 01/14/25 19:02 Respiratory Rate 16 01/14/25 19:02 Blood Pressure 107/54 L 01/14/25 19:02 Pulse Oximetry 98 01/14/25 19:02 <Flip Garrett MD - Last Filed: 01/14/25 21:44> Medical Decision Making MDM Narrative Medical decision making narrative: The patient was evaluated by myself in the emergency department. History is obtained from patient who is an independent historian and physical exam was performed. External medical records were reviewed at this time. IV was established and pertinent tests were ordered. Patient was administered 1 L IV fluid bolus with normal saline. EKG was obtained which revealed sinus rhythm rate of 70 beats per minute. No ST changes, T wave inversions or evidence of acute ischemia within the limitation of baseline artifact. EKG was independently interpreted by me and is currently pending official cardiology read. Laboratory results obtained revealing no acute process. Imaging studies obtained included CXR which was independently interpreted by me revealing no acute cardiopulmonary process, which is pending final radiology interpretation. Differential diagnosis considerations include dehydration, electrolyte derangements, vitamin deficiency, anemia. Comorbidities impacting this visit include history of alcohol abuse. I have evaluated and discussed social determinants of health with the patient that could potentially impact subsequent diagnosis and treatment plans. On repeat assessment of the patient, reevaluation revealed that the patient is doing well and is in no acute distress. Patient symptoms have improved since she arrived to our emergency department. Repeat vital signs were all reviewed and noted to be stable. Differential diagnosis and treatment plan were discussed with the patient at bedside. Patient agrees with discussion and after shared medical decision making agrees with discharge. All questions were answered to the patient's satisfaction. Patient will follow up with her PCP in 3-5 days. Patient was provided with strict return precautions and instructed to return to the emergency department if any new or worsening symptoms develop. The patient was discharged in stable condition. <Flip Garrett MD - Last Filed: 01/14/25 21:44> Vital Signs Vital Signs: Vital Signs Temperature 97.6 F 01/14/25 15:16 Pulse Rate 105 H 01/14/25 15:16 Respiratory Rate 16 01/14/25 15:16 Blood Pressure 124/51 L 01/14/25 15:16 Pulse Oximetry 97 01/14/25 15:16 Temperature 97.8 F 01/14/25 19:02 Pulse Rate 84 01/14/25 19:02 Respiratory Rate 16 01/14/25 19:02 Blood Pressure 107/54 L 01/14/25 19:02 Pulse Oximetry 98 01/14/25 19:02 <Megan Kaminski PA-C - Last Filed: 01/14/25 16:38> Vital Signs Temperature 97.6 F 01/14/25 15:16 Pulse Rate 105 H 01/14/25 15:16 Respiratory Rate 16 01/14/25 15:16 Blood Pressure 124/51 L 01/14/25 15:16 Pulse Oximetry 97 01/14/25 15:16 Temperature 97.8 F 01/14/25 19:02 Pulse Rate 84 01/14/25 19:02 Respiratory Rate 16 01/14/25 19:02 Blood Pressure 107/54 L 01/14/25 19:02 Pulse Oximetry 98 01/14/25 19:02 <Flip Garrett MD - Last Filed: 01/14/25 21:44> Lab Data Result diagrams: 01/14/25 19:09 01/14/25 19:09 <Megan Kaminski PA-C - Last Filed: 01/14/25 16:38> Labs: Lab Results 01/14/25 01/14/25 01/14/25 Range/Units 15:17 19:09 20:55 WBC 9.7 (4.5-10.0) K/mm3 RBC 4.01 L (4.2-5.4) M/mm3 Hgb 12.2 (12.0-15.0) g/dL Hct 36.7 L (37.0-47.0) % MCV 91.5 (80-100) fl MCH 30.4 (26-34) pg MCHC 33.2 (32-36) g/dl RDW 13.5 (11.5-14.5) % Plt Count 278 (150-375) k/mm3 MPV 8.8 (7.4-10.4) fl Immature Gran % (Auto) 0.4 (0-0.5) % Neut % (Auto) 60.5 (45.5-73.1) % Lymph % (Auto) 26.7 (18.3-44.2) % [place] % (Auto) 8.5 (2.6-8.5) % Eos % (Auto) 3.2 (0-4.4) % Baso % (Auto) 0.7 (0.2-1.2) % Lymph # (Auto) 2.59 (0.9-3.2) K/mm3 [place] # (Auto) 0.8 H (0.1-0.6) K/mm3 Eos # (Auto) 0.3 (0-0.3) K/mm3 Baso # (Auto) 0.1 (0.0-0.1) K/mm3 Abs Immat Gran (auto) 0.04 H (0.00-0.031) K/mm3 Absolute Neuts (auto) 5.9 (1.3-6.7) K/mm3 Absolute Nucleated RBC 0.000 (0.0-0.012) K/mm3 Nucleated RBC % 0.0 (0.0-0.2) % PT 13.0 (11.1-14.7) Seconds INR 1.0 APTT 27.2 (22.3-36.8) Seconds Sodium 139 (137-145) mmol/L Potassium 4.3 (3.4-5.0) mmol/L Chloride 106 (98-107) mmol/L Carbon Dioxide 27 (22-30) mmol/L Anion Gap 6 (4-12) mmol/L BUN 10 (7-17) mg/dL Creatinine 0.55 L (0.7-1.0) mg/dL Estim Creat Clear Calc 55 ml/min Estimated GFR > 60 (59 - ) Glucose 84 (65-110) mg/dL POC Capillary Glucose 157 H (65-105) mg/dl Calcium 8.9 (8.4-10.2) mg/dL Magnesium 2.2 (1.6-2.3) mg/dL Total Bilirubin 0.2 (0.2-1.3) mg/dL AST 29 (14-36) U/L ALT 18 (6-35) U/L Alkaline Phosphatase 49 (38-126) U/L Troponin I < 0.012 (0.000-0.034) ng/mL Total Protein 7.0 (6.3-8.2) g/dL Albumin 4.0 (3.5-5.1) g/dL <Megan Kaminski PA-C - Last Filed: 01/14/25 16:38> Lab Results 01/14/25 01/14/25 01/14/25 Range/Units 15:17 19:09 20:55 WBC 9.7 (4.5-10.0) K/mm3 RBC 4.01 L (4.2-5.4) M/mm3 Hgb 12.2 (12.0-15.0) g/dL Hct 36.7 L (37.0-47.0) % MCV 91.5 (80-100) fl MCH 30.4 (26-34) pg MCHC 33.2 (32-36) g/dl RDW 13.5 (11.5-14.5) % Plt Count 278 (150-375) k/mm3 MPV 8.8 (7.4-10.4) fl Immature Gran % (Auto) 0.4 (0-0.5) % Neut % (Auto) 60.5 (45.5-73.1) % Lymph % (Auto) 26.7 (18.3-44.2) % [place] % (Auto) 8.5 (2.6-8.5) % Eos % (Auto) 3.2 (0-4.4) % Baso % (Auto) 0.7 (0.2-1.2) % Lymph # (Auto) 2.59 (0.9-3.2) K/mm3 [place] # (Auto) 0.8 H (0.1-0.6) K/mm3 Eos # (Auto) 0.3 (0-0.3) K/mm3 Baso # (Auto) 0.1 (0.0-0.1) K/mm3 Abs Immat Gran (auto) 0.04 H (0.00-0.031) K/mm3 Absolute Neuts (auto) 5.9 (1.3-6.7) K/mm3 Absolute Nucleated RBC 0.000 (0.0-0.012) K/mm3 Nucleated RBC % 0.0 (0.0-0.2) % PT 13.0 (11.1-14.7) Seconds INR 1.0 APTT 27.2 (22.3-36.8) Seconds Sodium 139 (137-145) mmol/L Potassium 4.3 (3.4-5.0) mmol/L Chloride 106 (98-107) mmol/L Carbon Dioxide 27 (22-30) mmol/L Anion Gap 6 (4-12) mmol/L BUN 10 (7-17) mg/dL Creatinine 0.55 L (0.7-1.0) mg/dL Estim Creat Clear Calc 55 ml/min Estimated GFR > 60 (59 - ) Glucose 84 (65-110) mg/dL POC Capillary Glucose 157 H (65-105) mg/dl Calcium 8.9 (8.4-10.2) mg/dL Magnesium 2.2 (1.6-2.3) mg/dL Total Bilirubin 0.2 (0.2-1.3) mg/dL AST 29 (14-36) U/L ALT 18 (6-35) U/L Alkaline Phosphatase 49 (38-126) U/L Troponin I < 0.012 (0.000-0.034) ng/mL Total Protein 7.0 (6.3-8.2) g/dL Albumin 4.0 (3.5-5.1) g/dL <Flip Garrett MD - Last Filed: 01/14/25 21:44> Discharge Plan Discharge Clinical Impression: Paresthesias, Low BP <Megan Kaminski PA-C - Last Filed: 01/14/25 16:38> Patient Disposition: Home <Megan Kaminski PA-C - Last Filed: 01/14/25 16:38> Condition: Improved <Megan Kaminski PA-C - Last Filed: 01/14/25 16:38> Instructions: Antibiotic Form, Paresthesia (ED) <Megan Kaminski PA-C - Last Filed: 01/14/25 16:38> Additional Instructions: Please follow-up with your family doctor within the next 3-5 days. I did recommend obtaining a B12/folate and iron studies specially with your history of alcohol abuse as this could be contributing to your symptoms. Return to the ED if any new or worsening symptoms develop. <Megan Kaminski PA-C - Last Filed: 01/14/25 16:38> Patient Language: Citizen Of [place] <Megan Kaminski PA-C - Last Filed: 01/14/25 16:38> Prescriptions: No Action allopurinol 100 mg Tablet 100 mg PO DAILY allopurinol 100 mg 1 PO DAILY alprazolam 0.5 mg PRN PRN (Reason: Anxiety) Rx Instructions: 1 orally as needed hydrocodone-acetaminophen [[place]] 5-325 mg tablet 1 tablet PO Q8H PRN (Reason: pain) Qty: 10 0RF <Megan Kaminski PA-C - Last Filed: 01/14/25 16:38> Follow-up/Referrals: PHYSICIAN NOT ON STAFF,NONSTAFF [Primary Care Provider] - 3 Days Hardik Choi MD [Physician] - 3 Days <Megan Kaminski PA-C - Last Filed: 01/14/25 16:38> Time of Disposition: 21:39 <Megan Kaminski PA-C - Last Filed: 01/14/25 16:38> 21:39 <Flip Garrett MD - Last Filed: 01/14/25 21:44>
[2025-01-14 19:02] VITALS: BP 107/54; PULSE 84; RESP 16; TEMP 36.6; O2SAT 98
[2025-01-14 19:14] LABS: Hematocrit 36.7 % (37.0-47.0); Hemoglobin 12.2 g/dL (12.0-15.0); Immature Granulocyte Percent A 0.4 % (0-0.5); Lymphocytes Absolute Auto 2.59 K/mm3 (0.9-3.2); Mean Corpuscular HGB Conc 33.2 g/dl (32-36); Mean Corpuscular Hemoglobin 30.4 pg (26-34); Mean Corpuscular Volume 91.5 fl (80-100); Nucleated Red Blood Cells Absolute Auto 0.000 K/mm3 (0.0-0.012); Nucleated Red Blood Cells Perc 0.0 % (0.0-0.2); Platelet Count Result 278 k/mm3 (150-375); Red Blood Count 4.01 M/mm3 (4.2-5.4); White Blood Count 9.7 K/mm3 (4.5-10.0)
[2025-01-14 19:23] LABS: Alanine Aminotransferase 18 U/L (6-35); Albumin Level 4.0 g/dL (3.5-5.1); Alkaline Phosphatase 49 U/L (38-126); Anion Gap 6 mmol/L (4-12); Aspartate Amino Transferase 29 U/L (14-36); Bilirubin,Total 0.2 mg/dL (0.2-1.3); Blood Urea Nitrogen 10 mg/dL (7-17); Calcium 8.9 mg/dL (8.4-10.2); Carbon Dioxide 27 mmol/L (22-30); Chloride 106 mmol/L (98-107); Estimated CRCL calculation 55 ml/min; Estimated Glomerular Filt Rate > 60; Glucose 84 mg/dL (65-110); Potassium 4.3 mmol/L (3.4-5.0); Sodium 139 mmol/L (137-145); Total Protein 7.0 g/dL (6.3-8.2)
[2025-01-14 19:24] LABS: INR 1.0; Prothrombin Time 13.0 Seconds (11.1-14.7)
[2025-01-14 19:25] LABS: Partial Thromboplastin Time 27.2 Seconds (22.3-36.8)
[2025-01-14 19:35] LABS: Troponin I < 0.012 ng/mL (0.000-0.034)
--- OUTSIDE RECORDS SUMMARY | 2025-01-14 20:43 | XMS_ITS | Clinical Summary ---
Author Organization [facility] [address] Address [address] [place] [address] Care Team Providers Care Table Games Dual Rate Supervisor Name Role Phone Ritesh Zapien MD Primary [...] on file Legal Sex Female 5:42 PM VASCULAR ULTRASOUND TECHNOLOGIST Gender Identity Not on file Sexual Orientation Not on file Obstetrics History Last Filed Vital Signs Vital Sign Reading Time Taken Comments Blood Pressure 110/75 08/06/2024 10:35 AM VASCULAR ULTRASOUND TECHNOLOGIST Pulse 93 08/06/2024 10:35 AM VASCULAR ULTRASOUND TECHNOLOGIST Temperature 36.7 C (98.1 F) 09/27/2022 9:44 AM CDT Respiratory Rate 18 07/09/2024 11:05 AM VASCULAR ULTRASOUND TECHNOLOGIST Oxygen Saturation 96% 07/09/2024 11:05 AM VASCULAR ULTRASOUND TECHNOLOGIST Inhaled Oxygen Concentration - - Weight 41.3 kg (91 lb) 08/06/2024 10:35 AM VASCULAR ULTRASOUND TECHNOLOGIST r eported by Height 175.3 cm (5' 9) 08/06/2024 10:35 AM VASCULAR ULTRASOUND TECHNOLOGIST Body Mass Index 13.44 08/06/2024 10:35 AM VASCULAR ULTRASOUND TECHNOLOGIST Plan of Treatment Health Maintenance Due Date [...] CDT) Stool DNA - Cologuard Negative Negative [employer] (CLIA #:[id number]) Comment: NEGATIVE TEST RESULT. A negative Cologuard [...] Simms. et al, N Engl J Med 2014;370(14):3927-3117) The normal value (reference range) for this assay is negative. COLOGUARD RE-SCREENING RECOMMENDATION: Periodic colorectal cancer screening is an important part of preventive healthcare for asymptomatic individuals at average risk for colorectal cancer. Following a negative Cologuard result, the [place] Cancer Society and U.S. Multi-Society Task Force screening guidelines recommend a Cologuard re-screening interval of 3 years. References: [place] Cancer Society Guideline for Colorectal Cancer Screening: https://www.cancer.org/cancer/jglti-gabftq-bmibdg/tyqopfnuh-sdvtsbvlu-bzhikcn/ac s-rec ommendations.html.; [place] DYSON, Crystal SHAVER, Rosey HAMLIN, Colorectal Cancer Screening: Recommendations for Physicians and Patients from the U.S. Multi-Society Task Force on Colorectal Cancer Screening , Am J Gastroenterology 2017; 112:0785-2247. TEST DESCRIPTION: Composite algorithmic analysis of stool [...] (Nico Pollock al, N Engl J Med 2014;370(14):1330-8703.) Cologuard may produce a false negative or false positive result (no colorectal cancer or precancerous polyp present at colonoscopy follow up). A negative Cologuard test result does not guarantee the absence of CRC or advanced adenoma (pre-cancer). The current Cologuard screening interval is every 3 years. ([place] Cancer Society and U.S. Multi-Society Task Force). Cologuard performance data in a 10,000 patient pivotal study using colonoscopy as the reference method can be accessed at the following location: www.[employer].pfwaterworks/results. Additional description of the Cologuard test process, warnings and precautions can be found at www.[employer].comrd.com. Stool 03/09/2024 5:00 AM CDT 03/12/2024 1:41 PM CDT Katelyn Gottlieb NP LAB BODY FLUIDS AND STOOLS ORDERABLES Final Result [employer] (CLIA #:[id number]) [place] [address] * MAMMOGRAPHY (01/03/2024) us Historical Provider HEALTH MAINTENANCE Final Result * DEXA SCAN (04/25/2021) us Historical Provider HEALTH MAINTENANCE Final Result from Last 3 Months or Most Recently Relevant to Health Maintenance Insurance [facility] MEDICARE [facility] Care Teams Table Games Dual Rate Supervisor Relationship Specialty Start Date End Date Ritesh Zapien MD [address] [address] PCP - General Family Medicine 04/24/21
--- OUTSIDE RECORDS SUMMARY | 2025-01-14 20:43 | XMS_ITS | Referral Summary ---
Author Organization [facility] [address] Address [address] [place] [address] Care Team Providers Care Bpm Analyst Name Role Phone Ritesh Zapien MD Primary [...] on file Legal Sex Female 5:42 PM BUSINESS SYSTEMS CONSULTANT Gender Identity Not on file Sexual Orientation Not on file Last Filed Vital Signs Vital Sign Reading Time Taken Comments Blood Pressure 110/75 08/06/2024 10:35 AM BUSINESS SYSTEMS CONSULTANT Pulse 93 08/06/2024 10:35 AM BUSINESS SYSTEMS CONSULTANT Temperature 36.7 C (98.1 F) 09/27/2022 9:44 AM CDT Respiratory Rate 18 07/09/2024 11:05 AM BUSINESS SYSTEMS CONSULTANT Oxygen Saturation 96% 07/09/2024 11:05 AM BUSINESS SYSTEMS CONSULTANT Inhaled Oxygen Concentration - - Weight 41.3 kg (91 lb) 08/06/2024 10:35 AM BUSINESS SYSTEMS CONSULTANT r eported by Height 175.3 cm (5' 9) 08/06/2024 10:35 AM BUSINESS SYSTEMS CONSULTANT Body Mass Index 13.44 08/06/2024 10:35 AM BUSINESS SYSTEMS CONSULTANT Plan of Treatment Not on file Procedures Procedure Name Priority Date/Time Associated Diagnosis Comments STOOL DNA COLOGUARD Routine 03/09/2024 5:00 AM CDT Screening for colon cancer MAMMOGRAPHY Routine 01/03/2024 DEXA SCAN Routine 04/25/2021 from Last 3 Months or Most Recently Relevant to Health Maintenance Results * Stool DNA - Cologuard (03/09/2024 5:00 AM CDT) Stool DNA - Cologuard Negative Negative [employer] (CLIA #:[id number]) Comment: NEGATIVE TEST RESULT. A negative Cologuard [...] (Nico Pollock al, N Engl J Med 2014;370(14):0616-9215) The normal value (reference range) for this assay is negative. COLOGUARD RE-SCREENING RECOMMENDATION: Periodic colorectal cancer screening is an important part of preventive healthcare for asymptomatic individuals at average risk for colorectal cancer. Following a negative Cologuard result, the [place] Cancer Society and U.S. Multi-Society Task Force screening guidelines recommend a Cologuard re-screening interval of 3 years. References: [place] Cancer Society Guideline for Colorectal Cancer Screening: https://www.cancer.org/cancer/occlj-utelnd-bndqpc/ijtdbkjqx-pvkcnoniq-xihkeff/ac s-rec ommendations.html.; [place] DK, Crystal SHAVER, Rosey HAMLIN, Colorectal Cancer Screening: Recommendations for Physicians and Patients from the U.S. Multi-Society Task Force on Colorectal Cancer Screening , Am J Gastroenterology 2017; 112:4550-2004. TEST DESCRIPTION: Composite algorithmic analysis of stool [...] (Nico Pollock al, N Engl J Med 2014;370(14):4652-0308.) Cologuard may produce a false negative or false positive result (no colorectal cancer or precancerous polyp present at colonoscopy follow up). A negative Cologuard test result does not guarantee the absence of CRC or advanced adenoma (pre-cancer). The current Cologuard screening interval is every 3 years. ([place] Cancer Society and U.S. Multi-Society Task Force). Cologuard performance data in a 10,000 patient pivotal study using colonoscopy as the reference method can be accessed at the following location: www.exactlabs.com/results. Additional description of the Cologuard test process, warnings and precautions can be found at www.cologuard.com. Stool 03/09/2024 5:00 AM CDT 03/12/2024 1:41 PM CDT us Katelyn Gottlieb RADIO PROGRAM CHECKER LAB BODY FLUIDS AND STOOLS ORDERABLES Final Result [employer] (CLIA #:[id number]) [place] [address] [address] * MAMMOGRAPHY (01/03/2024) Historical Provider HEALTH MAINTENANCE Final Result * DEXA SCAN (04/25/2021) Historical Provider HEALTH MAINTENANCE Final Result from Last 3 Months or Most Recently Relevant to Health Maintenance Insurance [facility] MEDICARE [facility] Care Teams Bpm Analyst Relationship Specialty Start Date End Date Ritesh Zapien MD [address] [address] PCP - General Family Medicine 04/24/21
--- OUTSIDE RECORDS SUMMARY | 2025-01-14 20:43 | XMS_ITS | Encounter Summary ---
Author Organization [facility] Care Team Providers Care Irrigation Laborer Name Role Phone Ritesh Zapien MD Primary Care Provi jeff Katelyn Gottlieb NP Primary Care Provider [phone]- [phone] Katelyn Gottlieb NP Primary Care Provider [phone] Ritesh Zapien MD Primary Care Provi jeff Encounter Details Date Type Department Care Team (Latest Contact Info) Description 10/20/2015 Orders Only [facility] CLINCONV ProviderGrace MD [address] [place] [address] Social History Tobacco Use Types Packs/Day Years Used Date Smoking Tobacco: Never Assessed Comments Unknown Sex and Gender Information Value Date Recorded Sex Assigned at Not on file Legal Sex Female 5:42 PM PHARMACY CLERK Gender Identity Not on file Sexual Orientation [...] on filedocumented in this encounter Care Teams Irrigation Laborer Relationship Specialty Start Date End Date Ritesh Zapien MD [address] [place] [address] PCP - General Family Medicine 12/18/18 01/05/19 Katelyn Gottlieb NP [address] [facility] [address] [place] [address] PCP - General 01/22/19 04/23/21 Katelyn Gottlieb NP [address] [place] [address] [place] [id number] PCP - General 01/06/19 01/21/19 Ritesh Zapien MD [address] [place], [place] [id number] PCP - General Family Medicine 04/24/21 documented as of this encounter
--- OUTSIDE RECORDS SUMMARY | 2025-01-14 20:43 | XMS_ITS | Encounter Summary ---
Author Organization [facility] Care Team Providers Care Storm Chaser Name Role Phone Ritesh Zapien MD Primary Care Provi jeff Katelyn Gottlieb NP Primary Care Provider [phone] Katelyn Gottlieb NP Primary Care Provider Ritesh Zapien MD Primary Care Provi jeff Encounter Details Date Type Department Care Team (Latest Contact Info) Description 01/25/2016 Orders Only [facility] CLINCONV ProviderGrace MD [address] [place] [address] Social History Tobacco Use Types Packs/Day Years Used Date Smoking Tobacco: Never Assessed Comments Unknown Sex and Gender Information Value Date Recorded Sex Assigned at Not on file Legal Sex Female 5:42 PM RX SPECIALIST Gender Identity Not on file Sexual [...] on filedocumented in this encounter Care Teams Storm Chaser Relationship Specialty Start Date End Date Ritesh Zapien MD [address] [place] [address] PCP - General Family Medicine 12/18/18 01/05/19 Katelyn Gottlieb NP [address] [facility] [address] [place] [address] PCP - General 01/22/19 04/23/21 Katelyn Gottlieb NP [address] [place] [phone] PCP - General 01/06/19 01/21/19 Ritesh Zapien MD [address] [place], [place] [phone] PCP - General Family Medicine 04/24/21 documented as of this encounter
--- OUTSIDE RECORDS SUMMARY | 2025-01-14 20:43 | XMS_ITS | Clinical Summary ---
Author Organization [facility] Address [address] [place] [address] Care Team Providers Care Babbitter Name Role Phone Chery Katelyn Thakur APRN-SENIOR MECHANICAL PROJECT MANAGER Primary Care Provider [phone] Source Comments [facility] [employer],non-owned Affiliates and Associated Physician Practices is amultiple site organization consisting of ambulatory clinics and hospital sitesin [place], [place] and [place]. This disclosure is being madepursuant to the Care Everywhere program and may not contain all information available regarding this patient. Last updated 18.[facility] [employer] Allergies No known active allergies Immunizations Immunization Administration Dates Next Due Covid Pfizer primary monoval ent 12+ yr 0.3mL Purple cap 10/28/2020,10/06/2020 Social History Tobacco Use Types Packs/Day Years Used Date Smoking Tobacco: Never Assessed Comments Unknown Sex and Gender Information Value Date Recorded Sex Assigned at Not on file Legal Sex Female 6:03 AM ERGONOMICS CONSULTANT Gender Identity Not on file Sexual [...] complete this topic Insurance [employer] Care Teams Babbitter Relationship Specialty Start Date End Date Katelyn Gottlieb, YOGHURT MAKER-SENIOR MECHANICAL PROJECT MANAGER PCP - General 07/09/18
[2025-01-14] MEDS: SODIUM CHLORIDE 0.9% IV 1,000 ML 999 ML IV CONT (21:05)
[2025-01-14 21:07] LABS: Magnesium 2.2 mg/dL (1.6-2.3)
[2025-01-14 21:52] VITALS: BP 117/73; PULSE 71; RESP 16; O2SAT 100
== END 2025-01-14 21:58 | disposition home or self-care (01) ==
PROVIDERS: Physician Assistant; Emergency Provider Emergency Medicine
DX: R20.2 Paresthesia of skin (principal); I95.9 Hypotension, unspecified; J44.9 Chronic obstructive pulmonary disease, unspecified; D45 Polycythemia vera; M81.0 Age-related osteoporosis without current pathological fracture; F41.9 Anxiety disorder, unspecified; F10.21 Alcohol dependence, in remission
CPT/HCPCS: 36415; 71045; 80053; 82948; 83735; 84484; 85025; 85610; 85730; 93005; 96360; 99284; J7030

== ENCOUNTER 2025-04-28 09:54 | Outpatient (CLI) | payer MEDICARE, SELFPAY ==
--- NOTE | ~2025-04-28 | DEXA_ITS ---
Bone Density Report Name: CINDI ALCALA Age: 69 Sex: Female Ethnicity: White Date of : 1955 Indication: postmenopausal osteoporosis; parental hip fracture; height loss; prior fracture; Referring Provider: ИРИНА, TANYA Study: Bone densitometry was performed. Exam Date: April 28, 2025 Accession number: [id number] Bone Density: Region BMD T-score Z-score Classification AP Spine(L1-L4) 0.625 -3.8 -1.8 Osteoporosis Femoral Neck (Left) 0.494 -3.2 -1.4 Osteoporosis Total Hip (Left) 0.523 -3.4 -2.0 Osteoporosis Femoral Neck (Right) 0.452 -3.6 -1.8 Osteoporosis Total Hip (Right) 0.517 -3.5 -2.0 Osteoporosis Total Hip Mean 0.520 -3.5 -2.0 Osteoporosis World Health Organization criteria for BMD impression classify patients as: Normal (T-score at or above -1.0), Osteopenia (T-score between -1.0 and -2.5), or Osteoporosis (T-score at or below -2.5). 10-year Fracture Risk: FRAX not reported because: Some T-score for Spine Total or Hip Total or Femoral Neck at or below -2.5 Previous Exams: Region Exam Age BMD T-score BMD Change BMD Change Date g/cm2 vs Baseline vs Previous AP Spine (L1-L4) 04/28/2025 69 0.625 -3.8 -0.066 (-9.5%) -0.066 (-9.5%) 04/25/2021 65 0.691 -3.2 Total Hip(Left) 04/28/2025 69 0.523 -3.4 -0.027 (-4.9%) -0.027 (-4.9%) 04/25/2021 65 0.550 -3.2 Total Hip(Right) 04/28/2025 69 0.517 -3.5 -0.004 (-0.7%) -0.004 (-0.7%) 04/25/2021 65 0.521 -3.5 *Denotes significance at 95% confidence level, LSC for AP Spine = 0.022 g/cm2, LSC for Total Hip = 0.027 g/cm2 Clinical Information Provided by Patient: Has had a low trauma fracture Parent has had a hip fracture Has used the following medications: Vitamin D, Calcium Patient maximum height was 68.0 Menopause Age: 45 No regular weight bearing exercise Onset of menses at age 13 Number of children 4 Impression: The patient has established osteoporosis, based on the Total Spine T-score and the existence of a prior fracture. The patient has risk factors, including: parental hip fracture, previous fracture. The BMD for the AP Spine (L1-L4) decreased, changing by -9.5% since the last DXA exam. Discussion: HIGH RISK OF FRACTURE. BONE DENSITY IS UNDESIRABLY LOW AT ONE OR MORE SKELETAL SITES, CONSISTENT WITH POSTMENOPAUSAL OSTEOPOROSIS. This patient's lowest T-score, in a patient who has previously fractured, meets the World Health Organization's (WHO) criteria for severe osteoporosis. In untreated patients, the risk of osteoporotic fracture increases approximately two-fold for each 1.0 SD decrease in T-score. Low bone density is not the only risk factor for fracture; also consider factors such as patient's age, frailty or poor health, risk of falling, risk of injury, previous osteoporotic fracture, family history of osteoporosis, cigarette smoking, low body weight, etc. Not everyone with low bone mineral density has osteoporosis; osteomalacia and other metabolic bone disorders should also be considered. Patients who have osteoporosis should be evaluated for specific diseases and conditions (secondary causes) that may cause or contribute to bone loss. The [place] [employer] (AACE) and National Osteoporosis Foundation (NOF) recommend pharmacologic intervention for all postmenopausal women whose T-score is in this range. The patient should follow a healthful lifestyle (good nutrition with adequate calcium and vitamin D, and appropriate weight-bearing exercise). Follow-Up: Consider a repeat BMD and Vertebral Fracture Assessment (VFA) exam in 2 years or sooner if medically necessary, to reassess this patient's status. Reported by: MARILYN on 04/28/2025 10:47:00 AM. Reviewed, dictated and finalized at location A.
--- NOTE | ~2025-04-28 | MM_ITS ---
EXAMINATION: MM screening sayda BI w samantha HISTORY: Screening TECHNIQUE: Craniocaudal and mediolateral oblique 3-D tomosynthesis images were obtained and synthetic 2-D images were generated. CAD analysis was submitted and interpreted. COMPARISON: Comparison to multiple prior studies sequentially, with oldest reviewed study dated 04/25/2021. BREAST PARENCHYMAL COMPOSITION: Dense: The breasts are extremely dense, which lowers the sensitivity of mammography. FINDINGS: There is no evidence of suspicious mass, calcification, or architectural distortion to suggest malignancy in either breast. There has been no suspicious interval change. IMPRESSION: 1. No mammographic evidence of malignancy. 2. Recommend routine screening mammography in one year. BI-RADS Category 1: Negative Reviewed, dictated and finalized at location O.
--- OUTSIDE RECORDS SUMMARY | 2025-04-28 11:35 | XMS_ITS | Clinical Summary ---
Author Organization [facility] [address] Address [address] [place] [address] Care Team Providers Care Cuff Maker Name Role Phone Ritesh Zapien MD Primary [...] Date Comments COPD (chronic obstructive pulmonary disease) Anxiety Polycythemia vera H/O ETOH abuse Gout Osteoporosis Family History [...] on file Legal Sex Female 5:42 PM EQUAL OPPORTUNITY SPECIALIST Gender Identity Not on file Sexual Orientation Not on file Obstetrics History Last Filed Vital Signs Vital Sign Reading Time Taken Comments Blood Pressure 110/75 08/06/2024 10:35 AM EQUAL OPPORTUNITY SPECIALIST Pulse 93 08/06/2024 10:35 AM EQUAL OPPORTUNITY SPECIALIST Temperature 36.7 C (98.1 F) 09/27/2022 9:44 AM CDT Respiratory Rate 18 07/09/2024 11:05 AM EQUAL OPPORTUNITY SPECIALIST Oxygen Saturation 96% 07/09/2024 11:05 AM EQUAL OPPORTUNITY SPECIALIST Inhaled Oxygen Concentration - - Weight 41.3 kg (91 lb) 08/06/2024 10:35 AM EQUAL OPPORTUNITY SPECIALIST r eported by Height 175.3 cm (5' 9) 08/06/2024 10:35 AM EQUAL OPPORTUNITY SPECIALIST Body Mass Index 13.44 08/06/2024 10:35 AM EQUAL OPPORTUNITY SPECIALIST Plan of Treatment Health Maintenance Due Date Last Done Comments Hepatitis C Screening 1955 DTaP/Tdap/Td Vaccine (1 - Tdap) 1966 Hepatitis B Screening 1973 Zoster Vaccine (1 of 2) 2005 Osteoporosis Screening-Bone Density Scan 04/25/2023 04/25/2021, 01/22/2019 Well Visit 65+ 09/28/2023 09/27/2022, 02/17/2021 Depression Screening 10/02/2024 10/03/2023, 10/03/2023, 09/27/2022, Additional history exists Fall Risk Assessment 10/02/2024 10/03/2023, 09/27/2022, 02/17/2021 Breast Cancer Screening-Mammogram 01/02/2025 024, 12/29/2022 Covid-19 Vaccine (3 - 2024-2 6 season) 2025 10/28/2020, 10/06/2020 Influenza Vaccine (#1) 2025 04/07/2024, 2021 Colon Cancer Screening-DNA Stool 03/09/2027 03/09/20 24, 02/27/2021 Colon Cancer Screening-FIT Discontinued 03/09/2024, Pneumococcal vaccine 65+ Discontinued Procedures Procedure Name Priority Date/Time Associated Diagnosis Comments STOOL DNA COLOGUARD Routine 03/09/2024 5:00 AM CDT Screening for colon cancer MAMMOGRAPHY Routine 01/03/2024 DEXA SCAN Routine 04/25/2021 from Last 3 Months or Most Recently Relevant to Health Maintenance Results * Stool DNA - Cologuard (03/09/2024 5:00 AM CDT) Stool DNA - Cologuard Negative Negative [employer] (CLIA #:[id number]) Comment: NEGATIVE TEST RESULT. A negative Cologuard [...] (Nico Pollock al, N Engl J Med 2014;370(14):4182-7700) The normal value (reference range) for this assay is negative. COLOGUARD RE-SCREENING RECOMMENDATION: Periodic colorectal cancer screening is an important part of preventive healthcare for asymptomatic individuals at average risk for colorectal cancer. Following a negative Cologuard result, the [place] Cancer Society and U.S. Multi-Society Task Force screening guidelines recommend a Cologuard re-screening interval of 3 years. References: [place] Cancer Society Guideline for Colorectal Cancer Screening: https://www.cancer.org/cancer/qinqx-zdmkwp-dmbgjd/bgfeoeoey-zvxzguhgs-qxrystc/ac s-rec ommendations.html.; [place] DK, Crystal CR, Rosey MitchellK, Colorectal Cancer Screening: Recommendations for Physicians and Patients from the U.S. Multi-Society Task Force on Colorectal Cancer Screening , Am J Gastroenterology 2017; 112:4765-9715. TEST DESCRIPTION: Composite algorithmic analysis of stool [...] (Nico Pollock al, N Engl J Med 2014;370(14):7410-2673.) Cologuard may produce a false negative or false positive result (no colorectal cancer or precancerous polyp present at colonoscopy follow up). A negative Cologuard test result does not guarantee the absence of CRC or advanced adenoma (pre-cancer). The current Cologuard screening interval is every 3 years. ([place] Cancer Society and U.S. Multi-Society Task Force). Cologuard performance data in a 10,000 patient pivotal study using colonoscopy as the reference method can be accessed at the following location: www.[employer]Chain/results. Additional description of the Cologuard test process, warnings and precautions can be found at www.[employer] Solutionsrd.com. Stool 03/09/2024 5:00 AM CDT 03/12/2024 1:41 PM CDT Katelyn Gottlieb NP LAB BODY FLUIDS AND STOOLS ORDERABLES Final Result [employer] (CLIA #:[id number]) [place] [address] [place] [address] * HM MAMMOGRAPHY (01/03/2024) us Historical Provider HEALTH MAINTENANCE Final Result * HM DEXA SCAN (04/25/2021) Historical Provider HEALTH MAINTENANCE Final Result from Last 3 Months or Most Recently Relevant to Health Maintenance Insurance [employer] MEDICARE [employer] Care Teams Cuff Maker Relationship Specialty Start Date End Date Ritesh Zapien MD [address] [place] [address] PCP - General Family Medicine 04/24/21
--- OUTSIDE RECORDS SUMMARY | 2025-04-28 11:35 | XMS_ITS | Encounter Summary ---
Author Organization [facility] Care Team Providers Care Manager Contact Name Role Phone Ritesh Zapien MD Primary Care Provi jeff Katelyn Gottlieb NP Primary Care Provider [phone] Katelyn Gottlieb NP Primary Care Provider Ritesh Zapien MD Primary Care Provi jeff Encounter Details Date Type Department Care Team (Latest Contact Info) Description 01/25/2016 Orders Only [facility] CLINCONV ProviderGrace MD [address] [place] [address] Social History Tobacco Use Types Packs/Day Years Used Date Smoking Tobacco: Never Assessed Comments Unknown Sex and Gender Information Value Date Recorded Sex Assigned at Not on file Legal Sex Female 5:42 PM METEOROLOGIST IN CHARGE Gender Identity Not on file Sexual Orientation [...] on filedocumented in this encounter Care Teams Manager Contact Relationship Specialty Start Date End Date Ritesh Zapien MD [address] [address] PCP - General Family Medicine 12/18/18 01/05/19 Katelyn Gottlieb NP [address] [address] PCP - General 01/22/19 04/23/21 Katelyn Gottlieb NP [address] [address] PCP - General 01/06/19 01/21/19 Ritesh Zapien MD [address] [address] PCP - General Family Medicine 04/24/21 documented as of this encounter
--- OUTSIDE RECORDS SUMMARY | 2025-04-28 11:35 | XMS_ITS | Clinical Summary ---
Author Organization [facility] Address [address] [place] [address] Care Team Providers Care Automated Manufacturing Instructor Name Role Phone Chery Katelyn Thakur APRN-CAVALRY SCOUT Primary Care Provider [phone] Source Comments [facility] [employer],non-owned Affiliates and Associated Physician Practices is amultiple site organization consisting of ambulatory clinics and hospital sitesin [place], [place], [place] and [place]. This disclosure is being madepursuant to the Care Everywhere program and may not contain all information available regarding this patient. Last updated 18.[facility] [employer] Allergies No known active allergies Immunizations Immunization Administration Dates Next Due Covid Pfizer primary monoval ent 12+ yr 0.3mL Purple cap 10/28/2020,10/06/2020 Social History Tobacco Use Types Packs/Day Years Used Date Smoking Tobacco: Never Assessed Comments Unknown Sex and Gender Information Value Date Recorded Sex Assigned at Not on file Legal Sex Female 6:03 AM FINANCIAL OPERATIONS ANALYST Gender Identity Not on file Sexual Orientation [...] 2005 ZOSTER VACCINE (1 of 2) 2005 DEPRESSION SCREENING 07/08/2024 COVID-19 VACCINE (3 - 2024-2 6 season) 2025 10/28/2020, 10/06/2020 INFLUENZA VACCINE (#1) 2025 Respiratory Syncytial Virus [...] age to complete this topic Insurance [employer] [facility] Address: [facility] [id number] [place] [phone] Care Teams Automated Manufacturing Instructor Relationship Specialty Start Date End Date Katelyn Gottlieb, HEALTH SAFETY SPECIALIST-CAVALRY SCOUT PCP - General 07/09/18
--- OUTSIDE RECORDS SUMMARY | 2025-04-28 11:36 | XMS_ITS | Encounter Summary ---
Author Organization [facility] Care Team Providers Care Intermodal Customer Service Name Role Phone Ritesh Zapien MD Primary Care Provi jeff Katelyn Gottlieb NP Primary Care Provider [phone] Katelyn Gottlieb NP Primary Care Provider [phone] Ritesh Zapien MD Primary Care Provi jeff Encounter Details Date Type Department Care Team (Latest Contact Info) Description 10/20/2015 Orders Only [facility] CLINCONV ProviderGrace MD [address] [place] [address] Social History Tobacco Use Types Packs/Day Years Used Date Smoking Tobacco: Never Assessed Comments Unknown Sex and Gender Information Value Date Recorded Sex Assigned at Not on file Legal Sex Female 5:42 PM INCIDENT RESPONSE ANALYST Gender Identity Not on file Sexual [...] on filedocumented in this encounter Care Teams Intermodal Customer Service Relationship Specialty Start Date End Date Ritesh Zapien MD [address] [address] PCP - General Family Medicine 12/18/18 01/05/19 Katelyn Gottlieb NP [address] [address] PCP - General 01/22/19 04/23/21 Katelyn Gottlieb NP [address] [address] PCP - General 01/06/19 01/21/19 Ritesh Zapien MD [address] [address] PCP - General Family Medicine 04/24/21 documented as of this encounter
== END 2025-04-28 09:55 | disposition home or self-care (01) ==
LOC: ANHFOHIMG 09:55
PROVIDERS: Visit Provider Family Medicine
DX: Z12.31 Encounter for screening mammogram for malignant neoplasm of breast (principal); M81.0 Age-related osteoporosis without current pathological fracture; M85.89 Other specified disorders of bone density and structure, multiple sites; Z78.0 Asymptomatic menopausal state
CPT/HCPCS: 77063; 77067; 77080